=== PATIENT | male | born 1975 | race Caucasian/White ===

== ENCOUNTER 2017-03-06 03:36 | Emergency (ER) | payer OTHER ==
[2017-03-06 03:47] VITALS: BP 132/84; BMI 21.5
[2017-03-06 03:58] LABS: BILIRUBIN,URINE NEGATIVE (NEGATIVE); BLOOD/HEMOGLOBIN,URINE NEGATIVE (NEGATIVE); GLUCOSE, URINE NEGATIVE (NEGATIVE); KETONES,URINE NEGATIVE (NEGATIVE); LEUKOCYTE ESTERASE ,URINE NEGATIVE (NEGATIVE); NITRITES,URINE NEGATIVE (NEGATIVE); PH,URINE 6.5 (5.0 - 8.0); PROTEIN,URINE 1+ (NEGATIVE); UROBILINOGEN,URINE NORMAL (NORMAL)
[2017-03-06 04:13] LABS: BASOPHILS # (AUTO) 0.1 X10^3/uL (0.0-0.1); BASOPHILS % (AUTO) 0.8 % (0.2-1.0); EOSINOPHILS # (AUTO) 0.4 x10^3/uL (0.0-0.2); HEMATOCRIT 41.5 % (42.0-54.0); LYMPHOCYTES # (AUTO) 2.3 X10^3/uL (1.3-2.9); LYMPHOCYTES % (AUTO) 30.2 % (21.0-51.0); MEAN CORPUSCULAR HEMOGLOBIN 30.4 pg (27.0-34.0); MEAN CORPUSCULAR HGB CONC 33.7 g/dL (33.0-35.0); MEAN CORPUSCULAR VOLUME 90.1 fL (80.0-100.0); MEAN PLATELET VOLUME 7.5 fL (7.4-11.0); MONOCYTES # (AUTO) 0.7 x10^3/uL (0.3-0.8); MONOCYTES % (AUTO) 9.3 % (0.0-13.0); NEUTROPHILS # (AUTO) 4.1 x10^3/uL (2.2-4.8); NEUTROPHILS % (AUTO) 54.7 % (42.0-75.0); PLATELET COUNT 197 X10^3/uL (150.0-450.0); RED CELL DISTRIBUTION WIDTH 14.3 % (11.6-16.5); WHITE BLOOD COUNT 7.5 X10^3/uL (3.6-10.0)
[2017-03-06 04:15] LABS: APPEARANCE,URINE CLEAR (CLEAR); BACTERIA,URINE NEGATIVE /HPF (NEGATIVE); COLOR,URINE YELLOW (YELLOW); HYALINE CASTS, URINE RARE /LPF (NEGATIVE); RBC,URINE NONE SEEN /HPF (NEGATIVE); SQUAMOUS EPITHELIAL CELL,UR RARE /HPF (NEGATIVE)
[2017-03-06 04:27] LABS: ALANINE AMINOTRANSFERASE 128 Units/L (12-78); ALBUMIN 3.8 g/dL (3.4-5.0); ALKALINE PHOSPHATASE 111 Units/L (46-116); ASPARTATE AMINO TRANSFERASE 67 Units/L (15-37); BLOOD UREA NITROGEN 10 mg/dL (7-18); CALCIUM 8.7 mg/dL (8.5-10.1); CARBON DIOXIDE 24.3 mmol/L (21-32); CHLORIDE 102 mmol/L (98-107); CREATININE 0.97 mg/dL (0.70-1.30); GLUCOSE 85 mg/dL (65-99); MAGNESIUM 1.8 mg/dL (1.7-2.9); SODIUM 136 mmol/L (136-145); TOTAL PROTEIN 8.1 g/dL (6.4-8.2); eGFR BLACK RACES > 60 (>60); eGFR NON BLACK RACES > 60 (>60)
[2017-03-06 04:31] LABS: CARBAMAZEPINE (TEGRETOL) < 2.0 ug/mL (4-12)
--- NOTE | 2017-03-06 04:44 | DR.GENAD ---
HPI - PCP Primary Care Physician: kandis - HPI Comment HPI Comment: PATIENT HAVE HISTORY OF SEIZURE DISORDER. - Complaint/Symptoms Chief Complaint Doctors Comments: HAD SEIZURE TONIGHT. TAKES TEGRETOL BUT WAS CHANGE TO LAMICTAL TUESDAY. Chief Complaint:: pt states" i has a seizure i have not taken my tegretol since tuesday. they gave me some other kind of medicine and it don't work" - Nurses notes reviewed Nurses Notes Review: Yes - Source History Provided: Patient - Mode of Arrival Mode of Arrival: EMS - Timing Onset of Chief Complaint: 03/06/17 Came on: Suddenly - Duration Duration: Since Onset Duration: Hours - Severity Severity: Moderate PMH - PMH Past Medical History: Yes Past Medical History: Seizures Past Medical History Comment: oxcarbazepine 300 bid Past Surgical History: No - Family History History of Family Medical Conditions: No - Social History Does patient currently use any type of tobacco product: Yes Have you used tobacco products in the last 12 months: Yes Type of Tobacco Use: Smokeless Does any household member use tobacco: No Alcohol Use: None Do you use any recreational Drugs:: No Lives With: Other Lives Where: [facility] - infectious screening In the last 2 months have you had wt loss of >10#?: NO Have you had fever, night sweats or hemotysis?: No Have you traveled outside the country in the last 6 months?: No Isolation: Standard ROS - Review of Systems Constitutional: No Symptoms Reported Eyes: No Symptoms Reported ENTM: No Symptoms Reported, Hearing Loss Cardiovascular: No Symptoms Reported Gastrointestinal/Abdominal: No Symptoms Reported Genitourinary: No Symptoms Reported Neurological: Seizure Musculoskeletal: Muscle Pain Hematologic/Lymphatic: No Symptoms Reported Endocrine: No Symptoms Reported All Other Systems: Reviewed and Negative PE - Vital Signs Vitals: Temperature 97.8 F Pulse Rate 90 Respiratory Rate 18 Blood Pressure 132/84 O2 Sat by Pulse Oximetry 98 - General Limitations: No Limitations General Appearance: Alert - Head Head Exam: Normal Inspection - Eyes Eye exam: Normal Appearance - ENT ENT Exam: Normal External Ear Exam External Ear Exam: Normal External Inspection TM/Canal Exam: Bilateral Normal Nose Exam: Normal Nose Exam, Sinus Tenderness Mouth Exam: Normal Inspection Throat Exam: Normal Inspection - Neck Neck Exam: Normal Inspection - Chest Chest Inspection: Symmetric Chest Wall Rise - Respiratory Respiratory Exam: Normal Lung Sounds Bilat Respiratory Exam: Bilateral Clear to Auscultation - Cardiovascular Cardiovascular Exam: Regular Rate, Normal Rhythm, Normal Heart Sounds - Abdominal Exam Abdominal Exam: Normal Bowel Sounds, Soft. negative: Tenderness - Extremities Extremities Exam: Normal Inspection - Back Back Exam: Normal Inspection - Neurologic Neurological Exam: Alert, Oriented X3, CN II-XII Intact, Reflexes Normal. negative: Motor Sensory Deficit - Psychiatric Psychiatric Exam: Anxious - Skin Skin Exam: Normal Color MDM - Differential Diagnosis Differential Diagnosis: SEIZURE Course - Treatment Treatment: SEE ORDERS. - Education/Counseling Education/Counseling: Patient, Education Educated On: Treatment, Diagnosis, Needs for Follow Up ROR - Labs Reviewed Laboratory Results Reviewed?: Yes Result Diagrams: 03/06/17 04:00 03/06/17 04:00 Laboratory: WBC 7.5 X10^3/uL (3.6-10.0) 03/06/17 04:00 RBC 4.60 X10^6/uL (4.7-6.0) L 03/06/17 04:00 Hgb 14.0 g/dL (13.5-18.0) 03/06/17 04:00 Hct 41.5 % (42.0-54.0) L 03/06/17 04:00 MCV 90.1 fL (80.0-100.0) 03/06/17 04:00 MCH 30.4 pg (27.0-34.0) 03/06/17 04:00 MCHC 33.7 g/dL (33.0-35.0) 03/06/17 04:00 RDW 14.3 % (11.6-16.5) 03/06/17 04:00 Plt Count 197 X10^3/uL (150.0-450.0) 03/06/17 04:00 MPV 7.5 fL (7.4-11.0) 03/06/17 04:00 Neut % 54.7 % (42.0-75.0) 03/06/17 04:00 Lymph % 30.2 % (21.0-51.0) 03/06/17 04:00 [place] % 9.3 % (0.0-13.0) 03/06/17 04:00 Eos % 5.0 % (0.9-2.9) H 03/06/17 04:00 Baso % 0.8 % (0.2-1.0) 03/06/17 04:00 Neut # 4.1 x10^3/uL (2.2-4.8) 03/06/17 04:00 Lymph # 2.3 X10^3/uL (1.3-2.9) 03/06/17 04:00 [place] # 0.7 x10^3/uL (0.3-0.8) 03/06/17 04:00 Eos # 0.4 x10^3/uL (0.0-0.2) H 03/06/17 04:00 Baso # 0.1 X10^3/uL (0.0-0.1) 03/06/17 04:00 Absolute Nucleated RBC 0.1 /100WBC 03/06/17 04:00 Sodium 136 mmol/L (136-145) 03/06/17 04:00 Corrected Sodium TNP 03/06/17 04:00 Potassium 4.4 mmol/L (3.5-5.1) 03/06/17 04:00 Chloride 102 mmol/L (98-107) 03/06/17 04:00 Carbon Dioxide 24.3 mmol/L (21-32) 03/06/17 04:00 BUN 10 mg/dL (7-18) 03/06/17 04:00 Creatinine 0.97 mg/dL (0.70-1.30) 03/06/17 04:00 Est GFR (MDRD) Af Amer > 60 (>60) 03/06/17 04:00 Est GFR (MDRD) Non-Af > 60 (>60) 03/06/17 04:00 Glucose 85 mg/dL (65-99) 03/06/17 04:00 Calcium 8.7 mg/dL (8.5-10.1) 03/06/17 04:00 Corrected Calcium TNP 03/06/17 04:00 Magnesium 1.8 mg/dL (1.7-2.9) 03/06/17 04:00 Total Bilirubin 0.30 mg/dL (0.2-1.0) 03/06/17 04:00 AST 67 Units/L (15-37) H 03/06/17 04:00 ALT 128 Units/L (12-78) H 03/06/17 04:00 Alkaline Phosphatase 111 Units/L (46-116) 03/06/17 04:00 Total Protein 8.1 g/dL (6.4-8.2) 03/06/17 04:00 Albumin 3.8 g/dL (3.4-5.0) 03/06/17 04:00 Globulin 4.3 g/dL (2.5-4.5) 03/06/17 04:00 Albumin/Globulin Ratio 0.9 Ratio (1.1-2.1) L 03/06/17 04:00 Specimen Type Clean catch urine 03/06/17 03:48 Urine Color Yellow (YELLOW) 03/06/17 03:48 Urine Appearance Clear (CLEAR) 03/06/17 03:48 Urine pH 6.5 (5.0 - 8.0) 03/06/17 03:48 Ur Specific [place] 1.015 (1.000-1.030) 03/06/17 03:48 Urine Protein 1+ (NEGATIVE) 03/06/17 03:48 Urine Glucose (UA) Negative (NEGATIVE) 03/06/17 03:48 Urine Ketones Negative (NEGATIVE) 03/06/17 03:48 Urine Occult Blood Negative (NEGATIVE) 03/06/17 03:48 Urine Nitrite Negative (NEGATIVE) 03/06/17 03:48 Urine Bilirubin Negative (NEGATIVE) 03/06/17 03:48 Urine Urobilinogen Normal (NORMAL) 03/06/17 03:48 Ur Leukocyte Esterase Negative (NEGATIVE) 03/06/17 03:48 Urine RBC None seen /HPF (NEGATIVE) 03/06/17 03:48 Urine WBC 0-1 /HPF (NEGATIVE) 03/06/17 03:48 Ur Squamous Epith Cells Rare /HPF (NEGATIVE) 03/06/17 03:48 Urine Bacteria Negative /HPF (NEGATIVE) 03/06/17 03:48 Hyaline Casts Rare /LPF (NEGATIVE) 03/06/17 03:48 Ur Culture Indicated? No/not indicated 03/06/17 03:48 Carbamazepine < 2.0 ug/mL (4-12) L 03/06/17 04:00 - Diagnosis Discharge Problem: Seizure - Discharge Plan Disposition: 01 HOME, SELF-CARE Condition: Stable Prescriptions: Carbamazepine [Tegretol Tab 200 mg (Plain)] 200 mg PO TID #90 tab - Follow ups/Referrals Follow ups/Referrals: [facility],None [Primary Care Provider] - 03/07/17 - Instructions Instructions: Seizure, Adult, [id number] Additional Instructions: RETURN TO ED IF WORSE. CHECK TEGRETOL LEVEL IN ONE WEEK.
== END 2017-03-06 05:18 | disposition home or self-care (01) ==
LOC: ER 03:36
DX: R56.9 Unspecified convulsions (principal)
CPT/HCPCS: 36415; 80053; 80156; 81001; 83735; 85025; 99282